=== PATIENT | male | born 2000 | race American Indian/Alaskan Native ===

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

== ENCOUNTER 2020-07-06 23:52 | Inpatient (IN) | payer OTHER ==
[2020-07-06] MEDS ORDERED: HYDROmorphone 1 MG/1 ML INJ IV ONE (23:55)
[2020-07-06] MEDS ORDERED: HYDROmorphone 1 MG/1 ML INJ ONE (23:55)
[2020-07-06] MEDS ORDERED: ONDANSETRON 4 MG/2 ML INJ ONE (23:55)
[2020-07-06] MEDS ORDERED: SODIUM CHLORIDE 0.9% 1000 ML 1,000 ML ONE (23:55)
[2020-07-06] MEDS ORDERED: ONDANSETRON 4 MG/2 ML INJ IV ONE (23:56)
[2020-07-06] MEDS ORDERED: LACTATED RINGERS 1,000 ML IV ONE (23:56)
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
[2020-07-07] MEDS ORDERED: SODIUM CHLORIDE 0.9% 1000 ML 1,000 ML IV ONE (00:01)
[2020-07-07] MEDS ORDERED: KETOROLAC 30 MG/1 ML INJ IV ONE ×2 (00:02→10:00)
[2020-07-07] MEDS ORDERED: HYDROmorphone 1 MG/1 ML INJ IV ONE ×2 (00:02→00:17)
[2020-07-07] MEDS ORDERED: DIPHtheria,PERTUSSIS(ACELL),TETANUS VACCINE/PF 0.5 ML VIAL IM ONE (00:30)
[2020-07-07] MEDS ORDERED: VANCOMYCIN/NS 1 GM/250 ML 1 GM/250 ML BAG IV ONE (00:32)
[2020-07-07] MEDS ORDERED: LORazepam 2 MG/ML VIAL IV ONE (00:33)
[2020-07-07 00:45] LABS: INR 1.13 (0.87-1.13)
[2020-07-07 00:46] LABS: Partial Thromboplastin Time 20.4 Sec. (24.2-36.6)
[2020-07-07 00:53] LABS: Alanine Aminotransferase 9 units/L (7-56); Albumin 4.5 g/dL (3.9-5); BUN/Creatinine Ratio 8; Blood Urea Nitrogen 11 mg/dL (9-20); Calcium 9.3 mg/dL (8.4-10.2); Hemolysis Index 5
[2020-07-07] MEDS ORDERED: SODIUM CHLORIDE IRRI 500 ML 500 ML IR ONE (01:26)
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
[2020-07-07 02:06] LABS: Hematocrit 42.1 % (35.5-45.6); Hemoglobin 14.2 gm/dl (11.8-15.2); Mean Corpuscular HGB Conc 34 % (32-34); Mean Corpuscular Volume 92 fl (84-94); Platelet Count 193 K/mm3 (140-440); Red Blood Count 4.58 M/mm3 (3.65-5.03); Red Cell Distribution Width 13.8 % (13.2-15.2)
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
[2020-07-07] MEDS ORDERED: MORPHINE 2 MG/1 ML INJ IV PRN ×2 (02:51→17:00)
[2020-07-07] MEDS ORDERED: ONDANSETRON 4 MG/2 ML INJ IV PRN ×2 (02:52→12:12)
[2020-07-07] MEDS ORDERED: D5W/0.45% NACL 1,000 ML IV SCH (03:00)
[2020-07-07 03:13] LABS: Band Neutrophils # (Manual) 0.1 K/mm3; Platelet Estimate Consistent w Auto; RBC Morphology Normal; Total Cells Counted 100
[2020-07-07] MEDS ORDERED: SODIUM CHLORIDE 0.9% IRR 500 ML BOTTLE IR ONE (04:07)
[2020-07-07] MEDS: POTASSIUM CHLORIDE 10 MEQ 10 MEQ/100 ML BAG IV SCH ×2 (04:20→08:20)
[2020-07-07] MEDS: PANTOPRAZOLE 40 MG INJ IV SCH (10:06)
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
[2020-07-07] MEDS ORDERED: NEOMY 40 MG/POLYMYXIN B 200,000 UNITS/ML (GU) AMPULE IR ONE ×2 (12:06→15:39)
[2020-07-07] MEDS ORDERED: BUPIVACAINE-EPINEPHRINE/PF 0.5%-1:200,000 (30 ML) VIAL INFILTRATI ONE (12:06)
[2020-07-07] MEDS ORDERED: ceFAZolin/Water 2 GM/20 ML 2 GM/20 ML SYRINGE IV ONE (12:08)
[2020-07-07] MEDS ORDERED: LACTATED RINGERS 1,000 ML ONE (12:09)
--- NOTE | 2020-07-07 12:11 | Anesthesia Day of Surgery ---
Anesthesia Day of Surgery - Day of Surgery Patient Examined: Yes Patient H&P Reviewed: Yes Patient is NPO: Yes
[2020-07-07] MEDS ORDERED: HYDROmorphone 1 MG/1 ML INJ IV PRN ×2 (12:12)
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
[2020-07-07] MEDS ORDERED: LACTATED RINGERS 1,000 ML IV SCH (12:15)
[2020-07-07] MEDS ORDERED: MIDAZOLAM 2 MG/2 ML INJ IV NR (12:18)
[2020-07-07] MEDS: LACTATED RINGERS 1,000 ML IV SCH (12:20)
[2020-07-07] MEDS ORDERED: ceFAZolin/STERILE WATER 2 GM/20 ML SYRINGE IV NR (13:00)
[2020-07-07] MEDS ORDERED: dexAMETHasone 20 MG/5 ML VIAL ONE (13:02)
[2020-07-07] MEDS ORDERED: LIDOCAINE MPF (2%) 20 MG/1 ML VIAL 5 ML ONE (13:02)
[2020-07-07] MEDS ORDERED: ONDANSETRON 4 MG/2 ML INJ ONE (13:02)
[2020-07-07] MEDS ORDERED: HYDROmorphone 1 MG/1 ML INJ ONE (13:02)
[2020-07-07] MEDS ORDERED: propofoL 200 MG/20 ML VIAL IV ONE (13:03)
[2020-07-07] MEDS ORDERED: KETAMINE/STERILE WATER 50 MG/ML SYRINGE ONE (13:36)
[2020-07-07] MEDS ORDERED: WATER FOR IRRIG STERILE 1,500 ML BOTTLE IR ONE (14:15)
[2020-07-07] MEDS ORDERED: SODIUM CHLORIDE 0.9% IRR 1,500 ML BOTTLE IR ONE (15:39)
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
[2020-07-07] MEDS ORDERED: PHENYLEPHRINE/NS 1,000 MCG/10 ML SYRINGE (OR USE) IV ONE (15:58)
[2020-07-07] MEDS ORDERED: ACETAMINOPHEN 325 MG TAB PO PRN (16:19)
--- NOTE | 2020-07-07 16:19 | Post Anesthesia Evaluation ---
- Post Anesthesia Evaluation Patient Participated: Yes Airway Patent: Yes Stable Respiratory Function: Yes Nausea/Vomiting: No Temp > 96.8F: Yes Pain Manageable: Yes Adequeate Hydration: Yes Anesthesia Complications: Yes Block Receding Appropriately: Not Applicable Patient on Ventilator: No
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
[2020-07-07] MEDS ORDERED: MORPHINE 4 MG/1 ML INJ IV PRN (17:00)
[2020-07-07] MEDS: ceFAZolin/NS 1 GM/50 ML 1 GM/50 ML BAG IV SCH (21:26)
[2020-07-07] MEDS ORDERED: oxyCODONE /ACETAMINOPHEN 5-325MG TAB PO ONE (22:01)
[2020-07-08] MEDS: ceFAZolin/NS 1 GM/50 ML 1 GM/50 ML BAG IV SCH (05:35)
[2020-07-08 06:00] LABS: Hematocrit 37.5 % (35.5-45.6); Hemoglobin 12.7 gm/dl (11.8-15.2)
[2020-07-08] MEDS ORDERED: oxyCODONE /ACETAMINOPHEN 5-325MG TAB PO PRN (09:05)
[2020-07-08] MEDS ORDERED: PANTOPRAZOLE 20 MG TAB PO SCH (09:08)
[2020-07-08] MEDS: PANTOPRAZOLE 40 MG INJ IV SCH (09:09)
[2020-07-08] MEDS: LACTATED RINGERS 1,000 ML IV SCH (09:24)
[2020-07-08 09:50] LABS: BUN/Creatinine Ratio 8; Blood Urea Nitrogen 9 mg/dL (9-20); Calcium 9.1 mg/dL (8.4-10.2); Hemolysis Index 21
[2020-07-08] MEDS ORDERED: DOCUSATE SODIUM 100 MG CAP PO SCH (10:00)
[2020-07-08] MEDS ORDERED: ENOXAPARIN 40 MG/0.4 ML INJ SUB-Q SCH (10:00)
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
[2020-07-08 16:36] VITALS: BP 103/59
[2020-07-09] MEDS ORDERED: PANTOPRAZOLE 20 MG TAB PO SCH (07:30)
== END 2020-07-08 18:09 | disposition home or self-care (01) | DRG 482 ==
LOC: ED 23:52 → 4A 07-07 02:27 → 3B-SURG 07-07 02:58
PROVIDERS: ADMIT Internal Medicine Geriatric Medicine; ATTEND Internal Medicine
PROC: 0QSB06Z Reposition Right Lower Femur with Intramedullary Internal Fixation Device, Open Approach (ICD-10-PCS; principal; 2020-07-07)
DX: S72.491B Other fracture of lower end of right femur, initial encounter for open fracture type I or II (principal); E87.6 Hypokalemia; Y93.89 Activity, other specified; Y92.89 Other specified places as the place of occurrence of the external cause; G89.29 Other chronic pain; M54.5 Low back pain; W34.09XA Accidental discharge from other specified firearms, initial encounter
CPT/HCPCS: 36415; 80048; 80053; 80320; 82550; 85007; 85014; 85018; 85025; 85027; 85610; 85730; 86850; 86900; 86901; 90471; 90715; 96365; G0378; C1713; C1769; C9113; G0480; J0690; J1100; J1170; J1650; J1885; J2060; J2250; J2270; J2370; J2405; J2704; J3370; J3480; J3490; J7030; J7120; Q9967

== ENCOUNTER 2020-08-26 09:46 | Outpatient (CLI) | payer OTHER ==
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
== END 2020-08-26 09:47 | disposition home or self-care (01) ==
LOC: XRAY 09:46
PROVIDERS: ATTEND Orthopaedic Surgery
DX: S72.351A Displaced comminuted fracture of shaft of right femur, initial encounter for closed fracture (principal); X58.XXXA Exposure to other specified factors, initial encounter; Y93.89 Activity, other specified; Y92.89 Other specified places as the place of occurrence of the external cause; Y99.8 Other external cause status